=== PATIENT | female | born 1940 | race Caucasian/White ===

== ENCOUNTER 2016-10-21 14:51 | Outpatient (CLI) | payer MEDICARE | END 2016-10-21 14:52 | disposition home or self-care (01) | DX: E55.9 Vitamin D deficiency, unspecified (principal) ==

== ENCOUNTER 2016-11-12 16:27 | Outpatient (CLI) | payer MEDICARE | END 2016-11-12 16:28 | disposition home or self-care (01) | DX: Z13.820 Encounter for screening for osteoporosis (principal) ==

== ENCOUNTER 2016-11-20 13:37 | Outpatient (CLI) | payer MEDICARE | END 2016-11-20 13:38 | disposition home or self-care (01) | DX: Z13.820 Encounter for screening for osteoporosis (principal); M85.89 Other specified disorders of bone density and structure, multiple sites ==

== ENCOUNTER 2017-01-19 08:00 | Outpatient (CLI) | payer MEDICARE | END 2017-01-19 08:01 | disposition home or self-care (01) | DX: N39.0 Urinary tract infection, site not specified (principal) ==

== ENCOUNTER 2018-04-11 08:00 | Outpatient (CLI) | payer MEDICARE | END 2018-04-11 08:01 | LOC: LAB.R 08:00 | PROVIDERS: ATTEND Physician Assistant Medical | DX: R35.0 Frequency of micturition (principal); N39.0 Urinary tract infection, site not specified | CPT/HCPCS: 87086 ==

== ENCOUNTER 2018-09-26 19:36 | Outpatient (CLI) | payer OTHER, MEDICARE | END 2018-09-26 19:37 | disposition short-term general hospital (02) | LOC: EMS 19:36 | PROVIDERS: ATTEND Surgery | DX: R40.20 Unspecified coma (principal); V03.10XA Pedestrian on foot injured in collision with car, pick-up truck or van in traffic accident, initial encounter; Y93.01 Activity, walking, marching and hiking; Y92.413 State road as the place of occurrence of the external cause | CPT/HCPCS: A0425; A0427 ==